=== PATIENT | male | born 1980 | race Hispanic/Latino ===

== ENCOUNTER 2016-12-28 16:36 | Emergency (ER) | payer OTHER ==
[2016-12-28 16:55] VITALS: BP 113/70; PULSE 67; RESP 18; TEMP 98.1; O2SAT 98; BMI 24.3
--- NOTE | 2016-12-28 17:38 | ED PDOC ---
Arrival/HPI - General Chief Complaint: Lower Extremity Problem/Injury Time Seen by Provider: 12/28/16 16:56 Historian: Patient - History of Present Illness Narrative History of Present Illness (Text): 12/28/16 17:36 36yo male present with complaint of left 2nd toe pain x 2days. States he accidentally hit toe against a chair two days ago. The pain became increasingly worse today. Took Tylenol twice today without relieve. Pain is worse with weight bearing. denies any other complaint. Past Medical History - Provider Review Nursing Documentation Reviewed: Yes - Infectious Disease Hx of Infectious Diseases: None - Cardiac Hx Cardiac Disorders: No - Pulmonary Hx Respiratory Disorders: No - Neurological Hx Neurological Disorder: No - HEENT Hx HEENT Disorder: No - Renal Hx Renal Disorder: Yes Hx Kidney Stones: Yes - Psychiatric Hx Substance Use: No Family/Social History - Physician Review Nursing Documentation Reviewed: Yes Family/Social History: Unknown Family HX Smoking Status: Never Smoked Hx Alcohol Use: No Hx Substance Use: No Allergies/Home Meds Allergies/Adverse Reactions: Allergies No Known Allergies Allergy (Verified 12/28/16 16:55) Review of Systems - Physician Review All systems were reviewed & negative as marked: Yes - Review of Systems Constitutional: Normal Eyes: Normal ENT: Normal Respiratory: Normal Cardiovascular: Normal Gastrointestinal: Normal Genitourinary Male: Normal Musculoskeletal: Arthralgias (Left 2nd toe pain) Skin: Normal Neurological: Normal Endocrine: Normal Hemo/Lymphatic: Normal Psychiatric: Normal Physical Exam Vital Signs Reviewed: Yes Vital Signs Temp Pulse Resp BP Pulse Ox 12/28/16 16:49 98.1 F 67 18 113/70 98 Temperature: Afebrile Blood Pressure: Normal Pulse: Regular Respiratory Rate: Normal Appearance: Positive for: Well-Appearing, Non-Toxic, Comfortable Pain Distress: None Mental Status: Positive for: Alert and Oriented X 3 - Systems Exam Head: Present: Atraumatic, Normocephalic Pupils: Present: PERRL Extroacular Muscles: Present: EOMI Conjunctiva: Present: Normal Mouth: Present: Moist Mucous Membranes Neck: Present: Normal Range of Motion Respiratory/Chest: Present: Clear to Auscultation, Good Air Exchange. No: Respiratory Distress, Accessory Muscle Use Cardiovascular: Present: Regular Rate and Rhythm, Normal S1, S2. No: Murmurs Abdomen: Present: Normal Bowel Sounds. No: Tenderness, Distention, Peritoneal Signs Back: Present: Normal Inspection Upper Extremity: Present: Normal Inspection. No: Cyanosis, Edema Lower Extremity: Present: NORMAL PULSES, Tenderness (Left 2nd toe), Swelling ( Left 2nd toe), Erythema, Neurovascularly Intact. No: Edema, Normal ROM ( Limited ROM of left 2nd toe secondary to pain), Temperature Abnormalties Neurological: Present: GCS=15, CN II-XII Intact, Speech Normal Skin: Present: Warm, Dry, Normal Color. No: Rashes Psychiatric: Present: Alert, Oriented x 3, Normal Insight, Normal Concentration Medical Decision Making ED Course and Treatment: 12/29/16 01:04 LEft foot xray - No obvious fracture noted. toe was jim taped and ortho shoe given. Placed on abx secondary to the noted erythema. PT was advised that xray will be read by radiologist and will be notified if any fracture is noted. Referred to his PMd/Ortho. TRT ED for any new or worsening symptoms. - RAD Interpretation Radiology Orders: 12/28/16 16:59 FOOT LEFT 2ND DIGIT (TOE) [RAD] Stat - Medication Orders Current Medication Orders: Discontinued Medications Ketorolac Tromethamine (Toradol) 60 mg IM STAT STA Stop: 12/28/16 17:01 Last Admin: 12/28/16 17:07 Dose: 60 mg Disposition/Present on Arrival - Present on Arrival Any Indicators Present on Arrival: No History of DVT/PE: No History of Uncontrolled Diabetes: No Urinary Catheter: No History of Decub. 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
--- NOTE | 2016-12-29 10:35 | RAD ---
PROCEDURE: Left Foot Radiographs. HISTORY: toe pain s/p trauma COMPARISON: None. FINDINGS: BONES: Bone alignment and mineralization are normal. There is a deformity in the distal phalanx of the 2nd toe. No evidence of acute displaced fracture. JOINTS: Normal. SOFT TISSUES: Normal. OTHER FINDINGS: None. IMPRESSION: Mild deformity in the distal phalanx of the 2nd toe of uncertain etiology and significance. No evidence of acute displaced fracture.
== END 2016-12-28 18:35 | disposition home or self-care (01) ==
LOC: ED 16:36
DX: S92.502A Displaced unspecified fracture of left lesser toe(s), initial encounter for closed fracture (principal); W22.03XA Walked into furniture, initial encounter; Y93.89 Activity, other specified; Y92.89 Other specified places as the place of occurrence of the external cause
CPT/HCPCS: 73660; 96372; 99284; J1885

== ENCOUNTER 2017-10-10 10:07 | Emergency (ER) | payer OTHER ==
[2017-10-10 10:07] VITALS: BMI 24.3
[2017-10-10] MEDS ORDERED: Albuterol-Ipratrop 3 mg / 0.5 (3 ml) UD IH STA ×3 (10:19→10:29)
[2017-10-10 10:24] VITALS: RESP 18; TEMP 98; O2SAT 99
--- NOTE | 2017-10-10 10:28 | ED PDOC ---
Arrival/HPI - General Time Seen by Provider: 10/10/17 10:15 Historian: Patient - History of Present Illness Narrative History of Present Illness (Text): 10/10/17 10:21 37yo male with PMhx of Asthma who present with complaint of chest tightness/pain , SOB since yesterday. Notes history of similar symptoms with his Asthma. States he used his albuterol inhaler without receive. Denies fever, chills, LE edema, calf pain, sick contact, travel. He is not steroid dependent and never intubated. He smokes tobacco. Past Medical History - Provider Review Nursing Documentation Reviewed: Yes - Infectious Disease Hx of Infectious Diseases: None - Cardiac Hx Cardiac Disorders: No - Pulmonary Hx Respiratory Disorders: No - Neurological Hx Neurological Disorder: No - HEENT Hx HEENT Disorder: No - Renal Hx Renal Disorder: Yes Hx Kidney Stones: Yes - Psychiatric Hx Substance Use: No Family/Social History - Physician Review Nursing Documentation Reviewed: Yes Family/Social History: Unknown Family HX Smoking Status: Never Smoked Hx Alcohol Use: No Hx Substance Use: No Allergies/Home Meds Allergies/Adverse Reactions: Allergies No Known Allergies Allergy (Verified 10/10/17 10:21) Home Medications: Home Meds Medication Instructions Recorded Confirmed Albuterol HFA [Ventolin HFA 90 2 puff IH [id number] PRN 10/10/17 10/10/17 mcg/actuation (8 g)] Review of Systems - Physician Review All systems were reviewed & negative as marked: Yes - Review of Systems Constitutional: Normal Eyes: Normal ENT: Normal Respiratory: SOB Cardiovascular: Normal Gastrointestinal: Normal Genitourinary Male: Normal Musculoskeletal: Normal Skin: Normal Neurological: Normal Endocrine: Normal Hemo/Lymphatic: Normal Psychiatric: Normal Physical Exam Vital Signs Reviewed: Yes Vital Signs Temp Pulse Resp BP Pulse Ox 10/10/17 10:23 98.0 F 69 18 122/64 99 Temperature: Afebrile Blood Pressure: Normal Pulse: Regular Respiratory Rate: Normal Appearance: Positive for: Well-Appearing, Non-Toxic, Comfortable Pain Distress: None Mental Status: Positive for: Alert and Oriented X 3 - Systems Exam Head: Present: Atraumatic, Normocephalic Pupils: Present: PERRL Extroacular Muscles: Present: EOMI Conjunctiva: Present: Normal Mouth: Present: Moist Mucous Membranes Neck: Present: Normal Range of Motion Respiratory/Chest: Present: Clear to Auscultation, Good Air Exchange. No: Respiratory Distress, Accessory Muscle Use, Wheezes, Decreased Breath Sounds, Rales, Retracting, Rhonchi Cardiovascular: Present: Regular Rate and Rhythm, Normal S1, S2. No: Murmurs Abdomen: Present: Normal Bowel Sounds. No: Tenderness, Distention, Peritoneal Signs Back: Present: Normal Inspection Upper Extremity: Present: Normal Inspection. No: Cyanosis, Edema Lower Extremity: Present: Normal Inspection. No: Edema Neurological: Present: GCS=15, CN II-XII Intact, Speech Normal Skin: Present: Warm, Dry, Normal Color. No: Rashes Psychiatric: Present: Alert, Oriented x 3, Normal Insight, Normal Concentration Medical Decision Making ED Course and Treatment: 10/10/17 12:42 Pt presented for stated history. His PE was benign and he was 98 to 100% on RA. Pt however appear to be having respiratory distress and was treated with Duoneb x3 , prednisone and Mag sulfate. Pt continue to complain of SOB. His lab was unremarkable. On further questioning he admitted to taking Marijuana and reported history of anxiety. He started to complain of tingling of his lip and finger tips while in ED. All his symptoms resolved in ED with Ativan 2mg. EKG NSR AT 65bpm. He will be DC home. Advised to f/u with his PMD for anxiolytic and stop Marijuana. - Lab Interpretations Lab Results: 10/10/17 11:00 10/10/17 11:00 Lab Results 10/10/17 11:00: Influenza Typ A,B (EIA) Negative for flu a/b 10/10/17 11:00: Urine Opiates Screen Negative, Urine Methadone Screen Negative, Ur Barbiturates Screen Negative, Ur Phencyclidine Scrn Negative, Ur Amphetamines Screen Negative, U Benzodiazepines Scrn Negative, U Oth Cocaine Metabols Negative, U Cannabinoids Screen Positive H 10/10/17 11:00: Sodium 144, Potassium 3.6, Chloride 106, Carbon Dioxide 25, Anion Gap 17, BUN 10, Creatinine 0.8, Est GFR ( Amer) > 60, Est GFR (Non- Af Amer) > 60, Random Glucose 112 H, Calcium 10.3, Magnesium 2.1, Total Bilirubin 0.5, AST 24, ALT 39, Alkaline Phosphatase 47, Lactate Dehydrogenase 377, Total Creatine Kinase 108, Troponin I < 0.01, Total Protein 8.3, Albumin 5.0 H, Globulin 3.4, Albumin/Globulin Ratio 1.5 10/10/17 11:00: Urine Color Yellow, Urine Appearance Clear, Urine pH 7.0, Ur Specific [place] 1.010, Urine Protein Negative, Urine Glucose (UA) Negative, Urine Ketones Negative, Urine Blood Negative, Urine Nitrate Negative, Urine Bilirubin Negative, Urine Urobilinogen 0.2, Ur Leukocyte Esterase Negative 10/10/17 11:00: PT 10.4, INR 0.91 L, APTT 27.7, D-Dimer, Quantitative < 200 10/10/17 11:00: WBC 9.5, RBC 5.25, Hgb 15.8, Hct 44.9, MCV 85.5, MCH 30.1, MCHC 35.2, RDW 12.6, Plt Count 229, MPV 10.1, Gran % 57.7, Lymph % (Auto) 33.3, [place] % (Auto) 6.0, Eos % (Auto) 2.5, Baso % (Auto) 0.5, Gran # 5.48, Lymph # (Auto) 3.2, [place] # (Auto) 0.6, Eos # (Auto) 0.2, Baso # (Auto) 0.05 - RAD Interpretation Radiology Orders: 10/10/17 10:19 CHEST PORTABLE [RAD] Stat - Medication Orders Current Medication Orders: Discontinued Medications Albuterol/Ipratropium (Duoneb 3 Mg/0.5 Mg (3 Ml) Ud) 3 ml IH STAT STA Stop: 10/10/17 10:20 Last Admin: 10/10/17 10:33 Dose: 3 ml Albuterol/Ipratropium (Duoneb 3 Mg/0.5 Mg (3 Ml) Ud) 3 ml IH STAT STA Stop: 10/10/17 10:22 Last Admin: 10/10/17 10:34 Dose: 3 ml Albuterol/Ipratropium (Duoneb 3 Mg/0.5 Mg (3 Ml) Ud) 3 ml IH STAT STA Stop: 10/10/17 10:30 Last Admin: 10/10/17 11:17 Dose: 3 ml Magnesium Sulfate 2 gm/ Sodium (Chloride) 104 mls @ 102 mls/hr IVPB ONCE ONE Stop: 10/10/17 12:06 Last Admin: 10/10/17 11:24 Dose: 102 mls/hr eMAR Start Stop Document 10/10/17 11:24 EQ (Rec: 10/10/17 11:25 EQ [id number]) Intravenous Solution Start Date 10/10/17 Start Time 11:24 Lorazepam (Ativan) 2 mg IVP ONCE ONE PRN Reason: Protocol Stop: 10/10/17 11:57 Last Admin: 10/10/17 12:08 Dose: 2 mg IVP Administration Document 10/10/17 12:08 EQ (Rec: 10/10/17 12:08 EQ [id number]) Charges for Administration # of IVP Administrations 1 Nitroglycerin (Nitrostat Sl Tab) 0.4 mg SL STAT STA Stop: 10/10/17 12:14 Prednisone (Prednisone Tab) 60 mg PO STAT ONE Stop: 10/10/17 10:20 Last Admin: 10/10/17 10:34 Dose: 60 mg Disposition/Present on Arrival - Present on Arrival Any Indicators Present on Arrival: No History of DVT/PE: No History of Uncontrolled Diabetes: No Urinary Catheter: No History Surgical Site Infection Following: None - Disposition Have Diagnosis and Disposition been Completed?: Yes Diagnosis: Anxiety, Asthma attack Disposition: HOME/ ROUTINE Disposition Time: 12:40 Patient Plan: Discharge Patient Problems: Current Active Problems Problem Status Onset Anxiety Acute Asthma attack Acute Condition: STABLE Discharge Instructions (ExitCare): Asthma in Adults, Anxiety, Adult (DC) Additional Instructions: Follow up with your doctor Return to ED for any new symptoms Referrals: Annie Gonzalez, [Primary Care Provider] - Follow up with primary [facility] [Outside] - Follow up with primary
[2017-10-10] MEDS ORDERED: Magnesium Sulfate 1 gm in D5W 1 GM/100 ML BAG IVPB ONE (10:57)
[2017-10-10] MEDS ORDERED: Magnesium Sulfate 2 GM in Sodium Chloride 0.9% 100 ML IVPB ONE (11:05)
[2017-10-10 11:22] LABS: BASO # 0.05 K/mm3 (0.0-2.0); BASO % 0.5 % (0.0-3.0); EOS # 0.2 (0.0-0.7); EOS % 2.5 % (1.5-5.0); GRAN # 5.48 (1.4-6.5); GRAN % 57.7 % (50.0-68.0); HEMOGLOBIN 15.8 g/dL (14.0-18.0); LYMPH # 3.2 (1.2-3.4); LYMPH % 33.3 % (22.0-35.0); MEAN CELL VOLUME 85.5 fl (80.0-105.0); MEAN CORPUSCULAR HEMOGLOBIN 30.1 pg (25.0-35.0); MEAN CORPUSCULAR HGB CONC 35.2 g/dl (31.0-37.0); MEAN PLATELET VOLUME 10.1 fl (7.0-11.0); MONO # 0.6 (0.1-0.6); RBC 5.25 10^6/uL (3.5-6.1); RED CELL DISTRIBUTION WIDTH 12.6 % (11.5-14.5); WHITE BLOOD COUNT 9.5 10^3/ul (4.5-11.0)
[2017-10-10 11:27] LABS: URINE BILIRUBIN NEGATIVE (NEGATIVE); URINE BLOOD NEGATIVE (NEGATIVE); URINE GLUCOSE (UA) NEGATIVE (NEGATIVE); URINE LEUKOCYTE ESTERASE NEGATIVE Leu/uL (NEGATIVE); URINE PROTEIN NEGATIVE mg/dL (<30 mg/dL); URINE UROBILINOGEN 0.2 E.U./dL (<1 E.U./dL)
[2017-10-10 11:28] LABS: URINE APPEARANCE CLEAR (CLEAR); URINE COLOR YELLOW (YELLOW)
--- NOTE | 2017-10-10 11:32 | RAD ---
Portable chest radiograph AP semi-erect portable chest radiograph was obtained. Comparison: None Findings: The lungs are well inflated and clear. There is no focal consolidation. No pleural effusions or pneumothorax. The heart is normal in size. The visualized bones are within normal limits for the patient's age. Impression: No active pulmonary disease.
[2017-10-10 11:33] LABS: ALB/GLOB RATIO 1.5 (1.1-1.8); ALT/SGPT 39 U/L (7-56); AST/SGOT 24 U/L (17-59); BLOOD UREA NITROGEN 10 mg/dL (7-21); CALCIUM 10.3 mg/dL (8.4-10.5); GFR AFRICAN-AMERICAN > 60; GFR NON-AFRICAN AMERICAN > 60
[2017-10-10 11:37] LABS: PROTHROMBIN TIME 10.4 SECONDS (9.4-12.5)
[2017-10-10 11:38] LABS: D DIMER < 200 ng/mL (0-243); INR 0.91 (0.93-1.08); PARTIAL THROMBOPLASTIN TIME 27.7 Seconds (25.1-36.5)
[2017-10-10 11:44] LABS: TROPONIN I < 0.01 ng/mL
[2017-10-10 11:47] LABS: BARBITURATES, UR NEGATIVE (NEGATIVE); BENZODIAZEPINES, UR NEGATIVE (NEGATIVE); OPIATES, UR NEGATIVE (NEGATIVE); PHENCYCLIDINE, UR NEGATIVE (NEGATIVE)
[2017-10-10 12:50] VITALS: BP 106/66; PULSE 77
--- NOTE | 2017-10-10 19:25 | CARD ---
APPROVED REPORT EKG Measurement Heart [id number] <Conclusion> Normal sinus rhythm Normal ECG
== END 2017-10-10 13:21 | disposition home or self-care (01) ==
LOC: ED 10:07
DX: J45.909 Unspecified asthma, uncomplicated (principal); F41.9 Anxiety disorder, unspecified
CPT/HCPCS: 71045; 80053; 80324; 80345; 80346; 80349; 80353; 80358; 80361; 81003; 82550; 83615; 83735; 83992; 84484; 85025; 85378; 85610; 85730; 87804; 93005; 96374; 99283; J2060; J3475